=== PATIENT | female | born 1995 | race Caucasian/White ===

== ENCOUNTER 2020-10-20 07:16 | Emergency (ER) | payer OTHER, SELFPAY ==
[~2020-10-20] VITALS: Ht 160 cm; Wt 60.8 kg
[2020-10-20 07:18] VITALS: BP 116/81; Ht 160 cm; Wt 60.8 kg
== END 2020-10-20 08:25 | disposition home or self-care (01) ==
LOC: ED 07:16
DX: U07.1 COVID-19 (principal); J45.909 Unspecified asthma, uncomplicated
CPT/HCPCS: U0003